=== PATIENT | male | born 1965 | race Caucasian/White ===

== ENCOUNTER 2018-03-02 07:23 | Outpatient (CLI) | payer OTHER | END 2018-03-02 07:24 | disposition home or self-care (01) | LOC: SONOGRAMA 07:23 | DX: E04.1 Nontoxic single thyroid nodule (principal) ==

== ENCOUNTER 2023-04-16 08:23 | Outpatient (CLI) | payer OTHER | END 2023-04-16 08:25 | disposition home or self-care (01) | LOC: SONOGRAMA 08:23 | PROVIDERS: ATTEND Pathology Anatomic Pathology & Clinical Pathology | DX: D34 Benign neoplasm of thyroid gland (principal); E04.9 Nontoxic goiter, unspecified ==